=== PATIENT | male | born 1950 | race Caucasian/White ===

== ENCOUNTER 2017-10-02 02:33 | Emergency (ER) | payer MEDICARE, BC, OTHER ==
[~2017-10-02] VITALS: Ht 175.3 cm; Wt 106.8 kg
[~2017-10-02 02:33] MED LIST: ASPI81TA85 PO; ATOR1TAB21 PO; CARV6.25 PO; CHLO25TA PO; CINN500C9 PO; CLOP75TA2 PO; FENO160T10 PO; METF500T13 PO; MULTCAP12 PO; PANT40TA2 PO; SPIR25TA2 PO
[2017-10-02] MEDS ORDERED: FISH600C PO (02:47)
[2017-10-02] MEDS ORDERED: ALLO10TA PO (02:47)
[2017-10-02] MEDS ORDERED: LISI40TAB PO (02:47)
[2017-10-02] MEDS ORDERED: ASPIRIN 81 MG CHEW TABLET As Ordered ONE (03:22)
[2017-10-02 03:24] LABS: BASO # 0.1 10^3/uL (0.0-0.2); BASO % 0.5 % (0.0-1.0); EOS # 0.6 10^3/uL (0.0-0.50); EOS % 4.8 % (0.0-3.0); IMMATURE GRANULOCYTE % 0.9 % (0-0); LYMPH % 26.1 % (24.0-44.0); MEAN CORPUSCULAR HEMOGLOBIN 30.1 pg (27.0-33.0); MEAN CORPUSCULAR VOLUME 86.2 fl (80.0-96.0); MONO # 1.4 10^3/uL (0.0-0.8); MONO % 11.8 % (0.0-5.0); NEUTROPHILS # 6.5 10^3/uL (1.8-7.7); NEUTROPHILS % 55.9 % (36.0-66.0); PLATELET COUNT, AUTOMATED 297 10^3/uL (150-450); RED CELL DISTRIBUTION WIDTH 13.4 % (11.5-14.5); WHITE BLOOD COUNT 11.6 10^3/uL (4.0-10.0)
[2017-10-02 03:28] LABS: INR 0.94
[2017-10-02] MEDS ORDERED: GI COCKTAIL 50ML BTL(HYOSCYAMINE/MAALOX/LIDOCAINE VISCOUS)(1:3:1) PO ONE (03:30)
[2017-10-02] MEDS ORDERED: ASPIRIN 325 MG TAB PO ONE ×2 (03:30→03:45)
[2017-10-02] MEDS ORDERED: MORPHINE 4 MG/ML 1ML SYRINGE IV ONE (03:30)
[2017-10-02 03:41] LABS: ANION GAP 9 MEQ/L (8-16); BLOOD UREA NITROGEN 13 MG/DL (7-18); CALCIUM LEVEL 8.9 MG/DL (8.8-10.2); CARBON DIOXIDE LEVEL 27 MEQ/L (21-32); CHLORIDE LEVEL 95 MEQ/L (98-107); CREATININE FOR GFR 1.19 MG/DL (0.70-1.30); GLOMERULAR FILTRATION RATE > 60.0 (>49); GLUCOSE, FASTING 86 MG/DL (80-110); POTASSIUM SERUM 3.4 MEQ/L (3.5-5.1); SODIUM LEVEL 131 MEQ/L (136-145)
[2017-10-02] MEDS ORDERED: NS 500 ML IV ONE (03:45)
[2017-10-02] MEDS ORDERED: ASPIRIN 81 MG CHEW TABLET PO ONE ×3 (03:45)
[2017-10-02] MEDS ORDERED: ISOVUE-370 76% 100ML VIAL (Q9967) As Ordered ONE (03:50)
--- NOTE | 2017-10-02 06:18 | ECGEPIP ---
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
[2017-10-02] MEDS ORDERED: HEPARIN DRIP 25,000 UNITS in APPROPRIATE DILUENT 1 EA IV SCH (09:58)
[2017-10-02] MEDS ORDERED: HEPARIN SOD (PORCINE) 5000 UNITS/ML VIAL IV ONE (10:00)
[2017-10-02] MEDS ORDERED: CLOPIDOGREL 75 MG TAB PO ONE (10:00)
[2017-10-02] MEDS ORDERED: CARVedilol 12.5 MG TAB PO ONE (10:15)
[2017-10-02 11:22] VITALS: BP 150/86
--- NOTE | 2017-10-02 18:11 | ECGEPIP ---
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
--- NOTE | 2017-10-05 08:25 | REPUSA ---
CLINICAL HISTORY: Dyspnea, exclude PE. TECHNIQUE: Multiple incremental axial, coronal and oblique images are obtained from the thoracic inle t to the upper abdomen. Intravenous contrast material was administered as per pulmonary embolism prot ocol. COMMENTS: Bilateral basilar atelectatic changes. There is excellent opacification of pulmonary arterial system without evidence for pulmonary embolism . Aorta is of normal caliber without evidence for dissection or aneurysm. There is no evidence of pleural or parenchymal mass. There are no pleural effusions. There is no evid ence of hilar or mediastinal lymphadenopathy. The heart and great vessels are within normal limits. Images of the upper abdomen demonstrate no evidence of adrenal mass. The bony structures are free of lytic or blastic lesions. Multilevel degenerative changes are seen involving the visualized thoracolumbar spine. Scattered calcifications are seen involving the aorta and major branches compatible with atherosclero sis. Mild hepatomegaly. Prior cholecystectomy. IMPRESSION: No evidence for pulmonary embolism. Bilateral basilar atelectatic pulmonary changes changes. Pulmonary emphysema. Thank you for your kind referral of this patient.
== END 2017-10-02 11:27 | disposition short-term general hospital (02) ==
LOC: M ED 02:33
DX: I24.9 Acute ischemic heart disease, unspecified (principal); I25.10 Atherosclerotic heart disease of native coronary artery without angina pectoris; E11.9 Type 2 diabetes mellitus without complications; I10 Essential (primary) hypertension; K21.9 Gastro-esophageal reflux disease without esophagitis; K44.9 Diaphragmatic hernia without obstruction or gangrene; Z95.5 Presence of coronary angioplasty implant and graft; Z87.891 Personal history of nicotine dependence; Z79.84 Long term (current) use of oral hypoglycemic drugs; Z79.01 Long term (current) use of anticoagulants; Z79.899 Other long term (current) drug therapy; Z79.82 Long term (current) use of aspirin
CPT/HCPCS: 71275; 80048; 82550; 82553; 84484; 85025; 85610; 85730; 93005; 96374; 96375; 96376; 99285; Q9967

== ENCOUNTER 2017-11-13 08:15 | Outpatient (RCR) | payer MEDICARE, BC, OTHER | END 2017-12-09 | LOC: M CR 08:15 | DX: Z95.5 Presence of coronary angioplasty implant and graft (principal); I25.10 Atherosclerotic heart disease of native coronary artery without angina pectoris | CPT/HCPCS: 93798 ==

== ENCOUNTER 2017-12-10 09:09 | Outpatient (RCR) | payer MEDICARE, BC, OTHER ==
[2018-01-04 09:31] LABS: BEDSIDE GLUCOSE 110 MG/DL (80-115)
== END 2018-01-06 ==
LOC: M CR 09:09
DX: Z95.5 Presence of coronary angioplasty implant and graft (principal); I25.10 Atherosclerotic heart disease of native coronary artery without angina pectoris
CPT/HCPCS: 93798

== ENCOUNTER 2018-01-08 13:16 | Outpatient (RCR) | payer MEDICARE, BC, OTHER | END 2018-02-06 | LOC: M CR 13:16 | DX: Z51.89 Encounter for other specified aftercare (principal); Z95.5 Presence of coronary angioplasty implant and graft; I25.10 Atherosclerotic heart disease of native coronary artery without angina pectoris | CPT/HCPCS: 93798 ==

== ENCOUNTER → 2018-06-11 | Outpatient (CLI) | payer MEDICARE, BC ==
[2018-06-11 09:49] LABS: HEMATOCRIT 40.5 % (42.0-52.0); MEAN CORPUSCULAR HEMOGLOBIN 29.7 pg (27.0-33.0); MEAN CORPUSCULAR HGB CONC 34.6 g/dl (32.0-36.5); MEAN CORPUSCULAR VOLUME 85.8 fl (80.0-96.0); PLATELET COUNT, AUTOMATED 268 10^3/uL (150-450); RED BLOOD COUNT 4.72 10^6/uL (4.30-6.10); RED CELL DISTRIBUTION WIDTH 14.5 % (11.5-14.5); WHITE BLOOD COUNT 8.8 10^3/uL (4.0-10.0)
[2018-06-11 10:05] LABS: INR 0.95; PROTHROMBIN TIME 12.8 SECONDS (12.1-14.4)
[2018-06-11 10:15] LABS: ESTIMATED AVERAGE GLUCOSE 114 MG/DL (60-110); HEMOGLOBIN A1c 5.6 %
[2018-06-11 10:29] LABS: ALBUMIN 3.8 GM/DL (3.2-5.2); ALBUMIN/GLOBULIN RATIO 1.06 (1.00-1.93); ALKALINE PHOSPHATASE 35 U/L (45-117); ALT/SGPT 27 U/L (12-78); ANION GAP 10 MEQ/L (8-16); AST/SGOT 18 U/L (7-37); BILIRUBIN,TOTAL 0.6 MG/DL (0.2-1.0); BLOOD UREA NITROGEN 11 MG/DL (7-18); CARBON DIOXIDE LEVEL 26 MEQ/L (21-32); CHLORIDE LEVEL 98 MEQ/L (98-107); CHOLESTEROL LEVEL 133 MG/DL (<200); CREATININE FOR GFR 1.23 MG/DL (0.70-1.30); GLOMERULAR FILTRATION RATE > 60.0 (>49); GLUCOSE, FASTING 92 MG/DL (70-100); HDL CHOLESTEROL 48 MG/DL (>40); LDL CHOLESTEROL 52.2 MG/DL (<100); NON-HDL-C 85 MG/DL; POTASSIUM SERUM 4.5 MEQ/L (3.5-5.1); PROSTATIC SPECIFIC AG MONITOR 0.49 NG/ML (< 4.0); SODIUM LEVEL 134 MEQ/L (136-145); TOTAL PROTEIN 7.4 GM/DL (6.4-8.2); TRIGLYCERIDES LEVEL 164 MG/DL (<150)
== END ==
LOC: M LAB 08:46
DX: I10 Essential (primary) hypertension (principal); E11.9 Type 2 diabetes mellitus without complications
CPT/HCPCS: 71046

== ENCOUNTER → 2018-07-23 | Outpatient (REF) | payer MEDICARE, BC, OTHER | LOC: M LAB REF 15:35 | DX: L30.8 Other specified dermatitis (principal) | CPT/HCPCS: 88305 ==

== ENCOUNTER → 2018-08-13 | Outpatient (REF) | payer MEDICARE, OTHER ==
[2018-08-13 14:25] LABS: ALBUMIN/GLOBULIN RATIO 1.43 (1.00-1.93); ALKALINE PHOSPHATASE 36 U/L (45-117); ALT/SGPT 35 U/L (12-78); AST/SGOT 25 U/L (7-37); BILIRUBIN,DIRECT 0.3 MG/DL (0.0-0.2); BILIRUBIN,TOTAL 0.7 MG/DL (0.2-1.0); TOTAL PROTEIN 6.8 GM/DL (6.4-8.2)
[2018-08-13 15:34] LABS: HIV 1&2 SCREEN CENTAUR NEGATIVE (NEGATIVE)
[2018-08-16 10:30] LABS: HEPATITIS B SURFACE ANTIGEN NEGATIVE (NEGATIVE)
[2018-08-16 10:57] LABS: HEPATITIS C VIRUS ABY INDEX 0.1 INDEX (<0.8)
[2018-08-16 10:57] LABS: HEPATITIS B CORE ANTIBODY IGM NEGATIVE (NEGATIVE)
[2018-08-16 11:00] LABS: HEPATITIS A ANTIBODY IGM NEGATIVE (NEGATIVE)
== END ==
LOC: M LABDRWAD 12:34
DX: L40.9 Psoriasis, unspecified (principal)
CPT/HCPCS: 87340

== ENCOUNTER → 2018-12-01 | Outpatient (REF) | payer MEDICARE, OTHER ==
[~2018-12-01] MED LIST changes: +ALLO10TA PO; +BENZ200C70 PO; +CARV12.5 PO; +FISH600C PO; +LISI40TA PO; +MAGN500C PO; -PANT40TA2 PO; +PANT40TA3 PO; +SPIR-10 PO; -SPIR25TA2 PO
== END ==
LOC: M SFHCPLAZ 13:42
PROVIDERS: ATTEND Dermatology
DX: L40.9 Psoriasis, unspecified (principal); Z51.81 Encounter for therapeutic drug level monitoring; Z79.899 Other long term (current) drug therapy

== ENCOUNTER → 2019-01-24 | Day surgery (SDC) | payer MEDICARE, BC, OTHER ==
[~2019-01-24] VITALS: Ht 175.3 cm; Wt 106.1 kg
[~2019-01-24] MED LIST changes: +CHLO125TA PO; +NS 1,000 ML IV ONE
--- NOTE | 2019-01-24 12:43 | ROOR ---
Patient Name: Fredo Calzada Procedure Date: 01/24/2019 12:27 PM Date of : 1950 Age: 68 Room: [facility] Gender: Male Note Status: Finalized Procedure: Upper Endoscopy + Biopsies Indications: Follow-up of Longoria's esophagus Providers: Remy Mackey MD Referring MD: KATERINA FUENTES MD Requesting Provider: Medicines: Monitored Anesthesia Care Complications: No immediate complications. Procedure: Pre-Anesthesia Assessment: - The heart rate, respiratory rate, oxygen saturations, blood pressure, adequacy of pulmonary ventilation, and response to care were monitored throughout the procedure. The Endoscope was introduced through the mouth, and advanced to the second part of duodenum. The upper GI endoscopy was accomplished without difficulty. The patient tolerated the procedure well. Findings: The Z-line was variable and was found 40 cm from the incisors. Multiple biopsies were obtained with cold forceps for evaluation to rule out Longoria's Esophagus randomly at the gastroesophageal junction. A small hiatal hernia was present. No other significant abnormalities were identified in a careful examination of the stomach. The exam of the duodenum was otherwise normal. Impression: - Z-line variable, 40 cm from the incisors. - Small hiatal hernia. - Multiple biopsies were obtained at the gastroesophageal junction. - The examination was otherwise normal. Recommendation: - Patient has a contact number available for emergencies. The signs and symptoms of potential delayed complications were discussed with the patient. Return to normal activities tomorrow. Written discharge instructions were provided to the patient. - High fiber diet. - Discharge patient to home. - Continue present medications. - Await pathology results. - Telephone GI clinic for pathology results in 1 week. - Return to referring physician. - Resume Plavix (clopidogrel) at prior dose today. - The findings and recommendations were discussed with the patient's family. Remy Mackey MD Remy Mackey MD 01/24/2019 12:42:48 PM This report has been signed electronically. Number of Addenda: 0 Note Initiated On: 01/24/2019 12:27 PM Estimated Blood Loss: Estimated blood loss: none.
[2019-01-24 13:14] VITALS: BP 159/90
== END | disposition home or self-care (01) ==
LOC: M OPP 10:59
PROVIDERS: ATTEND Internal Medicine Gastroenterology
DX: K22.8 Other specified diseases of esophagus (principal); K44.9 Diaphragmatic hernia without obstruction or gangrene; K22.70 Barrett's esophagus without dysplasia; I25.2 Old myocardial infarction; Z79.82 Long term (current) use of aspirin; Z79.899 Other long term (current) drug therapy; Z88.8 Allergy status to other drugs, medicaments and biological substances; Z95.5 Presence of coronary angioplasty implant and graft; Z87.891 Personal history of nicotine dependence

== ENCOUNTER → 2019-06-01 | Outpatient (REF) | payer MEDICARE, OTHER ==
[~2019-06-01] MED LIST changes: -CHLO25TA PO; -NS 1,000 ML IV ONE
== END ==
LOC: M SFHCPLAZ 18:20
PROVIDERS: ATTEND Dermatology
DX: L82.1 Other seborrheic keratosis (principal); L57.8 Other skin changes due to chronic exposure to nonionizing radiation; D22.61 Melanocytic nevi of right upper limb, including shoulder

== ENCOUNTER 2019-07-07 07:59 | Day surgery (SDC) | payer MEDICARE, BC, OTHER ==
[~2019-07-07] VITALS: Ht 175.3 cm; Wt 102.1 kg
[~2019-07-07 07:59] MED LIST changes: +CINN500C15 PO; +MAGN250T6 PO; +MULT-40 PO
[2019-07-07] MEDS ORDERED: FLUTISP (08:27)
[2019-07-07] MEDS ORDERED: CIPRODEX OTIC SUSP 7.5ML As Ordered ONE (08:50)
[2019-07-07] MEDS ORDERED: fentaNYL 100 MCG/2 ML INJECTION (J3010) As Ordered ONE (08:57)
[2019-07-07] MEDS ORDERED: MIDAZOLAM INJ 2 MG/2 ML VIAL (J2250) As Ordered ONE (08:57)
[2019-07-07] MEDS ORDERED: PROPOFOL 200 MG/20 ML VIAL As Ordered ONE (08:58)
[2019-07-07] MEDS ORDERED: ONDANSETRON 4MG/2ML VIAL (J2405) As Ordered ONE (09:05)
[2019-07-07] MEDS ORDERED: dexameTHASONE 4 MG/ML 1ML VIAL (J1100) As Ordered ONE (09:05)
[2019-07-07 10:10] VITALS: BP 134/72
[2019-07-07] MEDS ORDERED: PERCOCET 5MG/325MG TAB PO PRN (10:15)
[2019-07-07] MEDS ORDERED: fentaNYL 100 MCG/2 ML INJECTION (J3010) IV PRN (10:15)
[2019-07-07] MEDS ORDERED: LR 1,000 ML IV SCH ×2 (10:15)
== END 2019-07-07 11:15 | disposition home or self-care (01) ==
LOC: M SDC 07:59
PROVIDERS: ATTEND Otolaryngology
DX: H65.22 Chronic serous otitis media, left ear (principal); I10 Essential (primary) hypertension; I25.2 Old myocardial infarction; I25.10 Atherosclerotic heart disease of native coronary artery without angina pectoris; E78.5 Hyperlipidemia, unspecified; E11.9 Type 2 diabetes mellitus without complications; K21.9 Gastro-esophageal reflux disease without esophagitis; L40.9 Psoriasis, unspecified; Z79.84 Long term (current) use of oral hypoglycemic drugs; Z87.891 Personal history of nicotine dependence; Z79.02 Long term (current) use of antithrombotics/antiplatelets; Z79.899 Other long term (current) drug therapy; Z91.040 Latex allergy status; Z88.8 Allergy status to other drugs, medicaments and biological substances
CPT/HCPCS: 69436; J1100; J2250; J2405; J3010

== ENCOUNTER → 2019-10-28 | Outpatient (CLI) | payer MEDICARE, BC, OTHER ==
[~2019-10-28] MED LIST changes: +FLUTISP
--- NOTE | 2019-10-28 12:07 | REP ---
Two-view chest: 10/28/2019. Indication: Dyspnea. Cough. Comparison: 06/11/2018. Findings: There is no air space consolidation. No pleural effusion or pneumothorax are present. The cardiomediastinal silhouette is unremarkable. Minimal left basilar atelectasis is noted. Impression: No acute cardiopulmonary process. Electronically Signed by Stan Hardy DO 10/28/2019 11:58 A
== END ==
LOC: M ADAMS 10:23
PROVIDERS: ATTEND Family Medicine
DX: J18.9 Pneumonia, unspecified organism (principal)

== ENCOUNTER → 2019-11-08 | Outpatient (RCR) | payer MEDICARE, BC, OTHER | END | disposition home or self-care (01) | LOC: M PT 08:41 | PROVIDERS: ATTEND Dermatology | DX: L40.9 Psoriasis, unspecified (principal) ==

== ENCOUNTER → 2019-12-09 | Outpatient (RCR) | payer MEDICARE, BC, OTHER | LOC: M PT 11-10 08:44 | PROVIDERS: ATTEND Dermatology | DX: L40.9 Psoriasis, unspecified (principal) ==

== ENCOUNTER → 2019-12-23 | Outpatient (CLI) | payer MEDICARE, BC, OTHER ==
--- NOTE | 2019-12-23 11:01 | REP ---
Clinical: Recent trauma with pain and swelling. Technique: Real time cuellar scale and color evaluation using high frequency transducer. Findings: Directed ultrasound examination overlying the right shoulder and area of maximal tenderness/swelling at the region of the bicipital groove was performed. Fluid is identified within the biceps tendon and there is disruption of the normal linear fibers as well as edema surrounding the long head of the biceps brachii. Impression: Findings are most suspicious for at least partial tear to the biceps tendon. Electronically Signed by Diallo Espinosa MD 12/23/2019 10:53 A
== END ==
LOC: M RAD 10:00
PROVIDERS: ATTEND Nurse Practitioner Family
DX: M79.621 Pain in right upper arm (principal)

== ENCOUNTER 2020-01-06 08:00 | Outpatient (RCR) | payer MEDICARE, BC, OTHER | END 2020-01-07 | LOC: M PT 08:00 | PROVIDERS: ATTEND Dermatology | DX: L40.9 Psoriasis, unspecified (principal) ==

== ENCOUNTER 2020-02-06 07:19 | Outpatient (RCR) | payer MEDICARE, BC, OTHER | END 2020-02-07 | LOC: M PT 07:19 | PROVIDERS: ATTEND Dermatology | DX: Z51.89 Encounter for other specified aftercare (principal); L40.9 Psoriasis, unspecified ==

== ENCOUNTER 2020-03-07 08:00 | Outpatient (RCR) | payer MEDICARE, BC, OTHER | END 2020-03-08 | LOC: M PT 08:00 | PROVIDERS: ATTEND Dermatology | DX: L40.9 Psoriasis, unspecified (principal) ==

== ENCOUNTER 2020-04-06 07:46 | Outpatient (RCR) | payer MEDICARE, BC, OTHER | END 2020-04-08 | LOC: M PT 07:46 | PROVIDERS: ATTEND Dermatology | DX: L40.9 Psoriasis, unspecified (principal) ==

== ENCOUNTER → 2020-04-08 | Outpatient (CLI) | payer MEDICARE, BC, OTHER | LOC: M LABSMTC 11:02 | PROVIDERS: ATTEND Anesthesiology | DX: Z01.818 Encounter for other preprocedural examination (principal); Z11.59 Encounter for screening for other viral diseases | CPT/HCPCS: C9803; U0003 ==

== ENCOUNTER 2020-04-11 07:06 | Day surgery (SDC) | payer MEDICARE, BC, OTHER ==
[~2020-04-11] VITALS: Ht 175.3 cm; Wt 102.1 kg
[2020-04-11] MEDS ORDERED: CIPRODEX OTIC SUSP 7.5ML As Ordered ONE (07:12)
[2020-04-11] MEDS ORDERED: MIDAZOLAM INJ 2MG/2ML VIAL (J2250 PER 1MG) As Ordered ONE (07:13)
[2020-04-11] MEDS ORDERED: fentaNYL 100 MCG/2 ML INJECTION (J3010) As Ordered ONE (07:13)
[2020-04-11] MEDS ORDERED: dexameTHASONE 4 MG/ML 1ML VIAL (J1100 PER 1MG) As Ordered ONE (07:57)
[2020-04-11] MEDS ORDERED: propofoL 200 MG/20 ML VIAL As Ordered ONE (07:57)
[2020-04-11] MEDS ORDERED: LIDOCAINE 2% 100MG/5ML SDV (FOR ANES.) As Ordered ONE (07:57)
[2020-04-11] MEDS ORDERED: ONDANSETRON 4MG/2ML VIAL As Ordered ONE (07:57)
[2020-04-11] MEDS ORDERED: fentaNYL 100 MCG/2 ML INJECTION (J3010) IV PRN (08:45)
[2020-04-11] MEDS ORDERED: LR 1,000 ML IV SCH (08:45)
[2020-04-11] MEDS ORDERED: oxyCODONE 5MG TAB PO PRN (08:45)
[2020-04-11] MEDS ORDERED: ONDANSETRON 4MG/2ML VIAL IV PRN (08:45)
[2020-04-11] MEDS ORDERED: LR 1,000 ML IV ONE (08:45)
[2020-04-11 09:18] VITALS: BP 146/70
--- NOTE | 2020-04-17 10:53 | RO ---
DATE OF PROCEDURE: 04/11/2020 PREPROCEDURE DIAGNOSIS: Chronic serous otitis media of the left ear. POSTPROCEDURE DIAGNOSIS: Chronic serous otitis medial of the left ear. PROCEDURE: Left tympanostomy. SURGEON: Dr. Aldair Stern. CANCER RESEARCHER: ANESTHESIA: General. CLINICAL PREAMBLE: This 69-year-old man has had left tympanostomy done previously for left serous otitis media. He was doing well until the tube was extruded. Management options including replacement of the left tympanostomy tube have been discussed. The patient understood and consented to the procedure. INTRAOPERATIVE FINDINGS: Severe left cerumen impaction and serous effusion in the left middle ear. DESCRIPTION OF PROCEDURE: The patient was identified in the preoperative holding area and brought operating room in stable condition. He had the left ear marked in the preop holding area as well. He was placed in the supine position on the operating table, followed by administration of general anesthesia by the anesthesiology team. Patient was prepped and draped in the usual fashion for the procedure. The patient's head was turned to the right side to expose the left ear. An ear speculum was inserted and cerumen was debrided. The left tympanic membrane was visualized and found to be intact and somewhat retracted. A middle ear effusion was also noted. Myringotomy incision was made over the anterior mucosa of the tympanic. Serous fluid was encountered and suctioned clear from the left middle ear cleft. A 7 mm straight shank tympanostomy tube was inserted. Ciprodex drops were instilled and a cotton ball inserted in the ear canal. At the end of the procedure, sponge and instrument counts are correct. No complications were encountered. Estimated blood loss was less than 1 mL. General anesthesia was reversed and patient was awakened and taken to the recovery room in stable condition.
== END 2020-04-11 09:40 | disposition home or self-care (01) ==
LOC: M SDC 07:06
PROVIDERS: ATTEND Otolaryngology
DX: H65.22 Chronic serous otitis media, left ear (principal); I10 Essential (primary) hypertension; E11.9 Type 2 diabetes mellitus without complications; I25.2 Old myocardial infarction; Z98.61 Coronary angioplasty status; K21.9 Gastro-esophageal reflux disease without esophagitis; M10.9 Gout, unspecified; Z88.8 Allergy status to other drugs, medicaments and biological substances; Z91.040 Latex allergy status; Z79.82 Long term (current) use of aspirin; Z79.84 Long term (current) use of oral hypoglycemic drugs; Z79.899 Other long term (current) drug therapy; F41.9 Anxiety disorder, unspecified
CPT/HCPCS: 69436; J1100; J2250; J2405; J3010

== ENCOUNTER → 2020-05-18 | Outpatient (CLI) | payer MEDICARE, BC, OTHER ==
[~2020-05-18] MED LIST changes: -ASPI81TA85 PO; +ASPI81TA86 PO; +D31000TA2 PO; +ECOT81TA5 PO; +NITR0.4S14; +PANT40TA29 PO; -PANT40TA3 PO
== END ==
LOC: M LAB 07:06
PROVIDERS: ATTEND Family Medicine
DX: I10 Essential (primary) hypertension (principal); R53.83 Other fatigue; E11.9 Type 2 diabetes mellitus without complications; E29.1 Testicular hypofunction; E03.9 Hypothyroidism, unspecified

== ENCOUNTER → 2020-05-18 | Outpatient (CLI) | payer MEDICARE, BC, OTHER ==
[2020-05-18 08:02] LABS: HEMATOCRIT 36.3 % (42.0-52.0); HEMOGLOBIN 12.1 g/dl (13.5-17.5); MEAN CORPUSCULAR HEMOGLOBIN 29.4 pg (27.0-33.0); MEAN CORPUSCULAR HGB CONC 33.3 g/dl (32.0-36.5); MEAN CORPUSCULAR VOLUME 88.1 fl (80.0-96.0); PLATELET COUNT, AUTOMATED 238 10^3/uL (150-450); RED BLOOD COUNT 4.12 10^6/uL (4.30-6.10)
[2020-05-18 08:40] LABS: ALBUMIN 3.5 GM/DL (3.2-5.2); ALT/SGPT 25 U/L (12-78); BILIRUBIN,TOTAL 0.7 MG/DL (0.2-1.0); BLOOD UREA NITROGEN 12 MG/DL (7-18); CALCIUM LEVEL 8.6 MG/DL (8.8-10.2); CARBON DIOXIDE LEVEL 27 MEQ/L (21-32); CHLORIDE LEVEL 99 MEQ/L (98-107); CHOLESTEROL LEVEL 125 MG/DL (<200); CHOLESTEROL RISK RATIO 2.659 (<5); CREATININE FOR GFR 1.13 MG/DL (0.70-1.30); GLOMERULAR FILTRATION RATE > 60.0 (>42); GLUCOSE, FASTING 85 MG/DL (70-100); HDL CHOLESTEROL 47 MG/DL (>40); LDL CHOLESTEROL 62 MG/DL (<100); NON-HDL-C 78 MG/DL; PROSTATIC SPECIFIC AG MONITOR 0.43 NG/ML (< 4.00); SODIUM LEVEL 135 MEQ/L (136-145); TOTAL PROTEIN 6.9 GM/DL (6.4-8.2); TRIGLYCERIDES LEVEL 80 MG/DL (<150)
[2020-05-18 08:42] LABS: TESTOSTERONE 680 NG/DL (241-827); TOTAL 25(OH) VITAMIN D 27.6 NG/ML (30.0-100.0)
[2020-05-18 11:06] LABS: HEMOGLOBIN A1c 6.6 %
== END ==
LOC: M LAB 07:11
PROVIDERS: ATTEND Dermatology
DX: Z79.899 Other long term (current) drug therapy (principal)

== ENCOUNTER 2020-06-16 22:05 | Emergency (ER) | payer MEDICARE, BC, OTHER ==
[~2020-06-16 22:05] MED LIST changes: -D31000TA2 PO; -ECOT81TA5 PO; -NITR0.4S14
[2020-06-17] MEDS ORDERED: LIDOCAINE 4% CREAM 5GM (LMX4) As Ordered ONE (00:11)
[2020-06-17] MEDS ORDERED: lisinopriL 40 MG TAB As Ordered ONE (00:44)
[2020-06-17] MEDS ORDERED: CARVedilol 3.125 MG TAB As Ordered ONE (00:46)
[2020-08-02 08:28] LABS: D-DIMER QUANT 658.19 ng/ml (<500); INR 1.03; PARTIAL THROMBOPLASTIN TIME 26.1 SECONDS (24.2-38.5); PROTHROMBIN TIME 13.7 SECONDS (12.5-14.3)
[2020-08-02 18:37] LABS: BASO # 0.1 10^3/uL (0.0-0.2); BASO % 0.5 % (0.0-1.0); EOS # 0.3 10^3/uL (0.0-0.5); EOS % 3.1 % (0.0-3.0); HEMATOCRIT 35.2 % (42.0-52.0); HEMOGLOBIN 12.1 g/dl (13.5-17.5); LYMPH # 2.8 10^3/uL (1.5-5.0); LYMPH % 26.7 % (24.0-44.0); MEAN CORPUSCULAR HGB CONC 34.4 g/dl (32.0-36.5); MEAN CORPUSCULAR VOLUME 87.1 fl (80.0-96.0); MONO # 1.3 10^3/uL (0.0-0.8); MONO % 12.2 % (0.0-5.0); NEUTROPHILS % 56.6 % (36.0-66.0); PLATELET COUNT, AUTOMATED 315 10^3/uL (150-450); RED BLOOD COUNT 4.04 10^6/uL (4.30-6.10); WHITE BLOOD COUNT 10.5 10^3/uL (4.0-10.0)
[2020-09-02 02:36] LABS: BLOOD UREA NITROGEN 16 MG/DL (7-18); CALCIUM LEVEL 8.8 MG/DL (8.8-10.2); CARBON DIOXIDE LEVEL 26 MEQ/L (21-32); CHLORIDE LEVEL 98 MEQ/L (98-107); CREATININE FOR GFR 1.25 MG/DL (0.70-1.30); GLOMERULAR FILTRATION RATE > 60.0 (>42); GLUCOSE, FASTING 106 MG/DL (70-100); NT-PRO BNP 297 PG/ML (<125); POTASSIUM SERUM 3.6 MEQ/L (3.5-5.1); SODIUM LEVEL 132 MEQ/L (136-145); URIC ACID 4.5 MG/DL (3.5-7.2)
[2020-09-12] MEDS ORDERED: ECOT81TA5 PO (12:10)
[2020-09-12] MEDS ORDERED: D31000TA2 PO (12:18)
[2020-09-12] MEDS ORDERED: NITR0.4S14 (12:19)
== END 2020-06-17 01:20 | disposition home or self-care (01) ==
LOC: M ED 22:05
DX: R22.41 Localized swelling, mass and lump, right lower limb (principal); E11.9 Type 2 diabetes mellitus without complications; I10 Essential (primary) hypertension; E78.5 Hyperlipidemia, unspecified; K21.9 Gastro-esophageal reflux disease without esophagitis; M10.9 Gout, unspecified; Z79.84 Long term (current) use of oral hypoglycemic drugs; Z79.899 Other long term (current) drug therapy

== ENCOUNTER → 2020-09-12 | Outpatient (CLI) | payer MEDICARE, BC, OTHER ==
[~2020-09-12] MED LIST changes: +D31000TA2 PO; +ECOT81TA5 PO; +NITR0.4S14
== END ==
LOC: M LABSMTC 12:11
PROVIDERS: ATTEND Anesthesiology
DX: Z01.818 Encounter for other preprocedural examination (principal)
CPT/HCPCS: C9803; U0003

== ENCOUNTER 2020-09-17 06:40 | Day surgery (SDC) | payer MEDICARE, BC, OTHER ==
[~2020-09-17] VITALS: Ht 175.3 cm; Wt 100.2 kg
[~2020-09-17 06:40] MED LIST changes: +NS 1,000 ML IV ONE
[2020-09-17] MEDS ORDERED: LIDOCAINE 2% 100MG/5ML SDV (FOR ANES.) As Ordered ONE (07:03)
[2020-09-17] MEDS ORDERED: propofoL 200 MG/20 ML VIAL As Ordered ONE (07:03)
--- NOTE | 2020-09-17 07:45 | ROOR ---
Patient Name: Fredo Calzada Procedure Date: 09/17/2020 7:32 AM Date of : 1950 Age: 70 Room: [facility] Gender: Male Note Status: Finalized Procedure: Upper Endoscopy + Biopsies Indications: Heartburn, Exclusion of Longoria's esophagus Providers: Remy Mackey MD Referring MD: NANCI FUENTES MD, Albaro Montejo MD Requesting Provider: Medicines: Monitored Anesthesia Care Complications: No immediate complications. Procedure: Pre-Anesthesia Assessment: - The heart rate, respiratory rate, oxygen saturations, blood pressure, adequacy of pulmonary ventilation, and response to care were monitored throughout the procedure. The Endoscope was introduced through the mouth, and advanced to the second part of duodenum. The upper GI endoscopy was accomplished without difficulty. The patient tolerated the procedure well. Findings: The Z-line was variable and was found 39 cm from the incisors. Multiple biopsies were obtained with cold forceps for evaluation to rule out Longoria's Esophagus randomly at the gastroesophageal junction. A small hiatal hernia was present. No other significant abnormalities were identified in a careful examination of the stomach. The exam of the duodenum was otherwise normal. Impression: - Z-line variable, 39 cm from the incisors. - Small hiatal hernia. - Multiple biopsies were obtained at the gastroesophageal junction. - The examination was otherwise normal. Recommendation: - Patient has a contact number available for emergencies. The signs and symptoms of potential delayed complications were discussed with the patient. Return to normal activities tomorrow. Written discharge instructions were provided to the patient. - High fiber diet. - Discharge patient to home. - Follow an antireflux regimen. - Continue present medications. - Await pathology results. - Telephone GI clinic for pathology results in 1 week. - Return to referring physician. - The findings and recommendations were discussed with the patient. Remy Mackey MD Remy Mackey MD 09/17/2020 7:45:25 AM Electronically signed by Remy Mackey MD Number of Addenda: 0 Note Initiated On: 09/17/2020 7:32 AM Estimated Blood Loss: Estimated blood loss: none.
--- NOTE | 2020-09-17 08:11 | ROOR ---
Patient Name: Fredo Calzada Procedure Date: 09/17/2020 7:34 AM Date of : 1950 Age: 70 Room: [facility] Gender: Male Note Status: Finalized Procedure: Total Colonoscopy to Cecum + Cold Snare Polypectomy + Hemoclips Indications: Screening for colorectal malignant neoplasm Providers: Remy Mackey MD Referring MD: NANCI FUENTES MD, Albaro Montejo MD Requesting Provider: Medicines: Monitored Anesthesia Care Complications: No immediate complications. Procedure: Pre-Anesthesia Assessment: - The heart rate, respiratory rate, oxygen saturations, blood pressure, adequacy of pulmonary ventilation, and response to care were monitored throughout the procedure. The Colonoscope was introduced through the anus and advanced to the cecum, identified by appendiceal orifice and ileocecal valve. The colonoscopy was performed without difficulty. The patient tolerated the procedure well. The quality of the bowel preparation was excellent. Findings: The perianal and digital rectal examinations were normal. Non-bleeding internal hemorrhoids were found during retroflexion. The hemorrhoids were small and Grade I (internal hemorrhoids that do not prolapse). A medium polyp was found at 40 cm proximal to the anus. The polyp was sessile. The polyp was removed with a cold snare. Resection and retrieval were complete. To prevent bleeding after the polypectomy, one hemostatic clip was successfully placed (MR conditional). There was no bleeding at the end of the procedure. Two sessile polyps were found at 20 cm proximal to the anus. The polyps were small in size. These polyps were removed with a cold snare. Resection and retrieval were complete. To prevent bleeding after the polypectomy, two hemostatic clips were successfully placed (MR conditional). Scattered small-mouthed diverticula were found in the recto-sigmoid colon, sigmoid colon and descending colon. The exam was otherwise without abnormality on direct and retroflexion views. Impression: - Non-bleeding internal hemorrhoids. - One medium polyp at 40 cm proximal to the anus, removed with a cold snare. Resected and retrieved. Clip (MR conditional) was placed. - Two small polyps at 20 cm proximal to the anus, removed with a cold snare. Resected and retrieved. Clips (MR conditional) were placed. - Diverticulosis in the recto-sigmoid colon, in the sigmoid colon and in the descending colon. - The examination was otherwise normal on direct and retroflexion views. - The exam was otherwise normal to the cecum. Recommendation: - Patient has a contact number available for emergencies. The signs and symptoms of potential delayed complications were discussed with the patient. Return to normal activities tomorrow. Written discharge instructions were provided to the patient. - High fiber diet. - Discharge patient to home. - Continue present medications. - Await pathology results. - Telephone GI clinic for pathology results in 1 week. - Repeat colonoscopy in 5 years for surveillance. - Return to referring physician. - Resume Plavix (clopidogrel) at prior dose today. - The findings and recommendations were discussed with the patient. Remy Mackey MD Remy Mackey MD 09/17/2020 8:11:16 AM Electronically signed by Remy Mackey MD Number of Addenda: 0 Note Initiated On: 09/17/2020 7:34 AM Estimated Blood Loss: Estimated blood loss: none.
[2020-09-17 08:25] VITALS: BP 116/63
== END 2020-09-17 08:40 | disposition home or self-care (01) ==
LOC: M OPP 06:40
PROVIDERS: ATTEND Internal Medicine Gastroenterology
DX: Z12.11 Encounter for screening for malignant neoplasm of colon (principal); K63.5 Polyp of colon; K57.30 Diverticulosis of large intestine without perforation or abscess without bleeding; K64.0 First degree hemorrhoids; K22.8 Other specified diseases of esophagus; K44.9 Diaphragmatic hernia without obstruction or gangrene; R12 Heartburn; Z79.82 Long term (current) use of aspirin; Z79.84 Long term (current) use of oral hypoglycemic drugs; Z79.899 Other long term (current) drug therapy

== ENCOUNTER → 2021-01-05 | Outpatient (CLI) | payer MEDICARE, BC, OTHER ==
[~2021-01-05] MED LIST changes: +ATOR80TA59 PO; +CHLO25TA PO; -LISI40TA PO; +LISI40TA4 PO; -NS 1,000 ML IV ONE; +VITA100054 PO; +ZYLO300T6 PO
== END ==
LOC: M LABSMTC 09:08
PROVIDERS: ATTEND Anesthesiology
DX: Z01.812 Encounter for preprocedural laboratory examination (principal); Z20.822 Contact with and (suspected) exposure to COVID-19

== ENCOUNTER 2021-01-10 07:33 | Day surgery (SDC) | payer MEDICARE, BC, OTHER ==
[~2021-01-10] VITALS: Ht 175.3 cm; Wt 103.4 kg
[~2021-01-10 07:33] MED LIST changes: +LIDOCAINE 1% MDV 20ML VIAL SQ PRN; +LR 1,000 ML IV ONE
[2021-01-10] MEDS ORDERED: PHENYLEPHRINE 0.5% NASAL SPRAY 15 ML As Ordered ONE (09:47)
[2021-01-10] MEDS ORDERED: CIPRODEX OTIC SUSP 7.5ML As Ordered ONE (09:47)
[2021-01-10] MEDS ORDERED: ONDANSETRON 4MG/2ML VIAL As Ordered ONE (10:07)
[2021-01-10] MEDS ORDERED: propofoL 200 MG/20 ML VIAL As Ordered ONE ×3 (10:07→10:50)
[2021-01-10] MEDS ORDERED: METOCLOPRAMIDE INJ 10MG/2ML VIAL (J2765 PER 1) As Ordered ONE (10:07)
[2021-01-10] MEDS ORDERED: LIDOCAINE 2% 100MG/5ML SDV (FOR ANES.) As Ordered ONE (10:07)
[2021-01-10] MEDS ORDERED: MIDAZOLAM INJ 2MG/2ML VIAL (J2250 PER 1MG) As Ordered ONE (10:07)
[2021-01-10] MEDS ORDERED: fentaNYL 100 MCG/2 ML INJECTION (J3010) As Ordered ONE (10:07)
[2021-01-10] MEDS ORDERED: dexameTHASONE 4 MG/ML 1ML VIAL (J1100 PER 1MG) As Ordered ONE (10:07)
[2021-01-10] MEDS ORDERED: ACETAMINOPHEN 1000MG 100ML IV BTL (OFIRMEV) (J0131 PER 10MG) As Ordered ONE (10:20)
[2021-01-10] MEDS ORDERED: ALBUTEROL 6.7GM INHALER **FOR ANES. CART/OMNICELL ONLY As Ordered ONE (10:20)
[2021-01-10] MEDS ORDERED: PHENYLephrine 500MCG 5ML (100MCG/ML) SYRINGE As Ordered ONE (10:48)
[2021-01-10] MEDS ORDERED: fentaNYL 100 MCG/2 ML INJECTION (J3010) IV PRN (11:20)
[2021-01-10] MEDS ORDERED: LR 1,000 ML IV SCH ×2 (11:20)
[2021-01-10] MEDS ORDERED: METOCLOPRAMIDE INJ 10MG/2ML VIAL (J2765 PER 1) IV PRN (11:20)
[2021-01-10] MEDS ORDERED: ONDANSETRON 4MG/2ML VIAL IV PRN (11:20)
[2021-01-10 12:20] VITALS: BP 161/89
--- NOTE | 2021-01-10 12:43 | RO ---
OPERATIVE NOTE DATE OF OPERATION: 01/10/2021 PREOPERATIVE DIAGNOSES: 1. Eustachian tube dysfunction. 2. Left serous otitis media. 3. Mixed hearing loss. POSTOPERATIVE DIAGNOSES: 1. Eustachian tube dysfunction. 2. Left serous otitis media. 3. Mixed hearing loss. PROCEDURE PERFORMED: Bilateral tympanostomy using the Ortiz Modified T-tube. ANESTHESIA: General. CLINICAL PREAMBLE: This 70-year-old gentleman presented to the office complaining of recurrent ear symptoms including hearing loss and fullness sensation. Physical examination revealed presence of fluid in the left ear and retracted right tympanic membrane. He also was noted to have mixed hearing loss. Management options including replacement of bilateral tympanostomy tube with the T-tube have been discussed. As the patient had good results while the T-tubes were in situ, he agreed to have the replacement of the T-tube performed. INTRAOPERATIVE FINDINGS: Bilateral cerumen impaction. Fluid in the left middle ear, which was suctioned clear. OR NARRATION: Patient was identified in preoperative holding and brought to the operating room in stable condition. In the supine position on the operating table, patient received general anesthesia followed by orotracheal intubation without incident. Patient was prepped and draped in the usual fashion for the procedure. The patient's head was turned to the left side to expose the right ear. Ear speculum was inserted, and cerumen was debrided. The right tympanic membrane was visualized under binocular magnification under an operating microscope and was found to be intact and mildly retracted. Myringotomy incision was made over the anterior-inferior quadrant of tympanic membrane. The right middle ear cleft was then suctioned clear. A Ortiz Modified T-tube was inserted. Ciprodex drops were instilled and a cotton ball was used to occlude the ear canal. The same procedure was carried out to place the same type of tympanostomy tube to the left ear as well. At the end of the end of the procedure, sponge and needle counts were correct. No complications were encountered. Estimated blood loss was nil. General anesthesia was reversed, and patient was awakened and taken to recover room in stable condition.
--- NOTE | 2021-01-11 09:12 | ECGEPIP ---
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
== END 2021-01-10 12:42 | disposition home or self-care (01) ==
LOC: M SDC 07:33
PROVIDERS: ATTEND Otolaryngology
DX: H69.93 Unspecified Eustachian tube disorder, bilateral (principal); H65.02 Acute serous otitis media, left ear; H90.8 Mixed conductive and sensorineural hearing loss, unspecified; K21.9 Gastro-esophageal reflux disease without esophagitis; L40.8 Other psoriasis; I10 Essential (primary) hypertension; E78.5 Hyperlipidemia, unspecified; Z98.61 Coronary angioplasty status; I25.10 Atherosclerotic heart disease of native coronary artery without angina pectoris; Z87.891 Personal history of nicotine dependence; Z91.040 Latex allergy status; Z88.8 Allergy status to other drugs, medicaments and biological substances; E11.9 Type 2 diabetes mellitus without complications; Z79.899 Other long term (current) drug therapy
CPT/HCPCS: 69436; 93005; J0131; J1100; J2250; J2370; J2405; J2765; J3010

== ENCOUNTER 2021-09-12 23:32 | Emergency (ER) | payer MEDICARE, BC, OTHER ==
[~2021-09-12] VITALS: Ht 175.3 cm; Wt 102.3 kg
[~2021-09-12 23:32] MED LIST changes: -LIDOCAINE 1% MDV 20ML VIAL SQ PRN; -LR 1,000 ML IV ONE
[2021-09-13 02:57] VITALS: BP 142/82
== END 2021-09-13 05:46 | disposition left against medical advice (07) ==
LOC: M ED 23:32
DX: Z53.21 Procedure and treatment not carried out due to patient leaving prior to being seen by health care provider (principal)

== ENCOUNTER → 2021-09-27 | Outpatient (CLI) | payer MEDICARE, BC, OTHER ==
--- NOTE | 2021-09-27 13:31 | REP ---
INDICATION: LLQ MASS COMPARISON: 12/20/2008 TECHNIQUE: Axial noncontrast images from the lung bases to the pubic symphysis with coronal and sagittal reformations. This CT examination was performed using the following dose reduction techniques: Automated exposure control, adjustment of mA and/or kv according to the patient's size, and use of iterative reconstruction technique. FINDINGS: Lung bases demonstrate chronic emphysematous changes. Liver, spleen, pancreas, bilateral adrenal glands and kidneys are essentially normal. Incidental 2 mm nonobstructing right nephrolith noted. The enteric system is unremarkable and without obstruction or acute inflammatory process. Normal terminal ileum and appendix identified in the right lower quadrant. Pelvis demonstrates normal bladder and age-appropriate prostate/seminal vesicles. Small fat containing right inguinal hernia noted. No ascites. No free air. No adenopathy. No focal inflammatory stranding. Atherosclerotic changes to the aorta and vasculature noted without aneurysm. Musculoskeletal structures demonstrate age-related degenerative changes without acute osseous abnormality. IMPRESSION: No acute abdominopelvic pathology appreciated. 2 mm nonobstructing right nephrolith. Small fat containing right inguinal hernia. <Electronically signed by Diallo Espinosa > 09/27/21 [id number]
== END ==
LOC: M RAD 12:55
PROVIDERS: ATTEND Family Medicine
DX: K40.90 Unilateral inguinal hernia, without obstruction or gangrene, not specified as recurrent (principal)

== ENCOUNTER → 2022-04-02 | Outpatient (CLI) | payer MEDICARE, BC, OTHER ==
[~2022-04-02] MED LIST changes: -D31000TA2 PO; +VITA100093 PO
== END ==
LOC: M WUC 09:19
PROVIDERS: ATTEND Family Medicine
DX: J44.9 Chronic obstructive pulmonary disease, unspecified (principal); J18.9 Pneumonia, unspecified organism

== ENCOUNTER → 2022-05-30 | Outpatient (REF) | payer MEDICARE, BC, OTHER | LOC: M LAB REF 20:51 | PROVIDERS: ATTEND Physician Assistant Medical | DX: H66.91 Otitis media, unspecified, right ear (principal) ==

== ENCOUNTER → 2022-11-14 | Outpatient (CLI) | payer MEDICARE, BC, OTHER | LOC: M RAD 08:35 | PROVIDERS: ATTEND Family Medicine | DX: J18.9 Pneumonia, unspecified organism (principal) ==

== ENCOUNTER 2023-05-14 09:46 | Emergency (ER) | payer MEDICARE, BC, OTHER ==
[~2023-05-14] VITALS: Ht 175.3 cm; Wt 90.7 kg
[~2023-05-14 09:46] MED LIST changes: +FLUT50SP17; -FLUTISP
[2023-05-14 14:21] LABS: BASO % 0.5 % (0.0-1.0); EOS # 0.5 10^3/uL (0.0-0.5); HEMATOCRIT 34.7 % (42.0-52.0); HEMOGLOBIN 12.1 g/dl (13.5-17.5); LYMPH # 1.8 10^3/uL (1.5-5.0); LYMPH % 27.3 % (24.0-44.0); MEAN CORPUSCULAR HEMOGLOBIN 30.1 pg (27.0-33.0); MEAN CORPUSCULAR HGB CONC 34.9 g/dl (32.0-36.5); MEAN CORPUSCULAR VOLUME 86.3 fl (80.0-96.0); MONO # 0.8 10^3/uL (0.0-0.8); MONO % 11.6 % (2.0-8.0); NEUTROPHILS # 3.5 10^3/uL (1.5-8.5); NEUTROPHILS % 52.1 % (36.0-66.0); PLATELET COUNT, AUTOMATED 266 10^3/uL (150-450); RED BLOOD COUNT 4.02 10^6/uL (4.30-6.10); WHITE BLOOD COUNT 6.6 10^3/uL (4.0-10.0)
[2023-05-14 14:38] LABS: INR 1.42; PROTHROMBIN TIME 17.6 SECONDS (12.5-14.5)
[2023-05-14 14:46] LABS: ALBUMIN 3.8 G/DL (3.2-5.2); ALKALINE PHOSPHATASE 44 U/L (46-116); ALT/SGPT 22 U/L (7.0-40); AST/SGOT 11 U/L (<34); BILIRUBIN,DIRECT 0.5 MG/DL (<0.4); BILIRUBIN,TOTAL 1.1 MG/DL (0.3-1.2); BLOOD UREA NITROGEN 9 MG/DL (9-23); CALCIUM LEVEL 8.7 MG/DL (8.3-10.6); CARBON DIOXIDE LEVEL 27 MMOL/L (20-31); CHLORIDE LEVEL 94 MMOL/L (98-107); CREATININE FOR GFR 0.98 MG/DL (0.70-1.30); GLOMERULAR FILTRATION RATE > 60.0 (>42); GLUCOSE, FASTING 87 MG/DL (74-106); POTASSIUM SERUM 3.1 MMOL/L (3.5-5.1); SODIUM LEVEL 128 MMOL/L (136-145); TOTAL PROTEIN 6.7 G/DL (5.7-8.2)
[2023-05-14] MEDS ORDERED: ISOVUE-370 76% 100ML VIAL As Ordered ONE (14:50)
[2023-05-14 16:13] VITALS: BP 145/68; TEMP 97.9; O2SAT 98
== END 2023-05-14 16:28 | disposition home or self-care (01) ==
LOC: M ED 09:46
DX: R22.42 Localized swelling, mass and lump, left lower limb (principal); I70.202 Unspecified atherosclerosis of native arteries of extremities, left leg; I11.9 Hypertensive heart disease without heart failure; I48.91 Unspecified atrial fibrillation; I25.2 Old myocardial infarction; E11.9 Type 2 diabetes mellitus without complications; E78.5 Hyperlipidemia, unspecified; K21.9 Gastro-esophageal reflux disease without esophagitis; K22.70 Barrett's esophagus without dysplasia; M10.9 Gout, unspecified; Z79.899 Other long term (current) drug therapy; Z88.8 Allergy status to other drugs, medicaments and biological substances; Z91.040 Latex allergy status; Z79.82 Long term (current) use of aspirin
CPT/HCPCS: 36415; 73630; 75635; 80048; 80076; 85025; 85610; 85730; 93971; 99284; Q9967

== ENCOUNTER → 2023-10-06 | Outpatient (REF) | payer MEDICARE, BC, OTHER | LOC: M LAB REF 14:42 | PROVIDERS: ATTEND Physician Assistant Medical | DX: H60.8X1 Other otitis externa, right ear (principal) ==

== ENCOUNTER → 2023-10-09 | Outpatient (REF) | payer MEDICARE, OTHER | LOC: M LAB REF 16:44 | PROVIDERS: ATTEND Physician Assistant Medical | DX: H66.91 Otitis media, unspecified, right ear (principal) ==

== ENCOUNTER → 2024-02-03 | Outpatient (CLI) | payer MEDICARE, OTHER, BC ==
[~2024-02-03] MED LIST changes: -FLUT50SP17; +FLUTISP
== END ==
LOC: M RAD 07:30
PROVIDERS: ATTEND Family Medicine
DX: J44.9 Chronic obstructive pulmonary disease, unspecified (principal); J18.9 Pneumonia, unspecified organism

== ENCOUNTER 2024-03-12 21:32 | Inpatient (IN) | payer MEDICARE, OTHER, BC ==
[~2024-03-12] VITALS: Ht 175.3 cm; Wt 80.6 kg
[~2024-03-12 21:32] MED LIST changes: -NITR0.4S14; +NITR0.4S14 SL
[2024-03-12 22:58] LABS: BASO % 0.2 % (0.0-1.0); EOS # 0.2 10^3/uL (0.0-0.5); EOS % 2.2 % (0.0-3.0); HEMATOCRIT 39.3 % (42.0-52.0); HEMOGLOBIN 14.3 g/dl (13.5-17.5); LYMPH # 1.5 10^3/uL (1.5-5.0); LYMPH % 18.2 % (24.0-44.0); MEAN CORPUSCULAR HEMOGLOBIN 29.2 pg (27.0-33.0); MEAN CORPUSCULAR HGB CONC 36.4 g/dl (32.0-36.5); MEAN CORPUSCULAR VOLUME 80.2 fl (80.0-96.0); MONO % 12.4 % (2.0-8.0); NEUTROPHILS # 5.5 10^3/uL (1.5-8.5); NEUTROPHILS % 66.6 % (36.0-66.0); PLATELET COUNT, AUTOMATED 266 10^3/uL (150-450); WHITE BLOOD COUNT 8.3 10^3/uL (4.0-10.0)
[2024-03-12 23:44] LABS: ALBUMIN 3.1 G/DL (3.2-5.2); ALKALINE PHOSPHATASE 58 U/L (46-116); ALT/SGPT 46 U/L (7.0-40); AST/SGOT 92 U/L (<34); BILIRUBIN,DIRECT 1.3 MG/DL (<0.4); BILIRUBIN,TOTAL 2.1 MG/DL (0.3-1.2); BLOOD UREA NITROGEN 12 MG/DL (9-23); CALCIUM LEVEL 8.4 MG/DL (8.3-10.6); CARBON DIOXIDE LEVEL 31 MMOL/L (20-31); CHLORIDE LEVEL 76 MMOL/L (98-107); CREATININE FOR GFR 1.03 MG/DL (0.70-1.30); GLOMERULAR FILTRATION RATE > 60.0 (>42); GLUCOSE, FASTING 104 MG/DL (74-106); POTASSIUM SERUM 2.4 MMOL/L (3.5-5.1); SODIUM LEVEL 117 MMOL/L (136-145); THYROID STIMULATING HORMONE 6.458 uIU/ML (0.55-4.78); TOTAL PROTEIN 6.8 G/DL (5.7-8.2)
[2024-03-13] MEDS ORDERED: ISOVUE-370 76% 100ML VIAL As Ordered ONE (01:21)
[2024-03-13] MEDS: NS 1,000 ML IV SCH (01:24)
[2024-03-13] MEDS: ONDANSETRON 4MG 2ML VIAL IV ONE (01:24)
[2024-03-13] MEDS: POTASSIUM CHLORIDE 10% LIQ 20MEQ/15ML UDC PO ONE (01:57)
[2024-03-13 02:31] LABS: ETHYL ALCOHOL (ETHANOL) 0.032 % (0.000-0.010)
[2024-03-13 02:36] LABS: FREE T4 1.36 NG/DL (0.89-1.76)
[2024-03-13] MEDS ORDERED: ONDA4TAB6 PO (02:48)
[2024-03-13] MEDS ORDERED: ALLO300T2 PO (02:48)
[2024-03-13] MEDS ORDERED: CLOB0.0548 TOP (02:48)
[2024-03-13] MEDS ORDERED: KETO2SHA8 TOP (02:48)
[2024-03-13] MEDS ORDERED: FURO40TA2 PO (02:48)
[2024-03-13] MEDS ORDERED: AUGM0.0534 TOP (02:48)
[2024-03-13] MEDS ORDERED: VITA500045 PO (02:48)
[2024-03-13] MEDS ORDERED: MAGN400T2 PO (02:48)
[2024-03-13] MEDS ORDERED: HOME MED LIST COMPLETE! XX SCH (02:50)
[2024-03-13] MEDS ORDERED: GLUCAGON INJ 1MG VIAL SC PRN (03:00)
[2024-03-13] MEDS ORDERED: GLUCOSE 4 GM CHEW PO PRN (03:00)
[2024-03-13] MEDS ORDERED: DEXTROSE 50% 50ML SYRINGE IV PRN (03:00)
[2024-03-13] MEDS: FUROSEMIDE 20MG/2ML VIAL IV ONE (03:17)
[2024-03-13] MEDS: KCL 10MEQ/100ML SWI (KRUN) 10 MEQ in IV 1 EA IV SCH (03:18)
[2024-03-13 03:33] LABS: MAGNESIUM LEVEL 1.3 MG/DL (1.8-2.4)
[2024-03-13 04:03] LABS: APPEARANCE, URINE CLEAR (CLEAR); BACTERIA, URINE AUTO NEGATIVE (NEGATIVE); BILIRUBIN, URINE AUTO NEGATIVE (NEGATIVE); BLOOD, URINE BLOOD 1+ (NEGATIVE); COLOR, URINE YELLOW (YELLOW); GLUCOSE, URINE (UA) AUTO NEGATIVE (NEGATIVE); KETONE, URINE AUTO NEGATIVE (NEGATIVE); LEUKOCYTE ESTERASE, URINE AUTO NEGATIVE (NEGATIVE); NITRITE, URINE AUTO NEGATIVE (NEGATIVE); PROTEIN, URINE AUTO 2+ mg/dL (NEGATIVE); RBC, URINE AUTO 2 /HPF (0-3); SQUAMOUS EPITHELIAL CELL UR AU 0 /HPF (0-6); UROBILINOGEN, URINE AUTO 0.2 mg/dL (0.0-2.0); WBC, URINE AUTO 0 /HPF (0-3)
[2024-03-13] MEDS: MAG SULF 1GM/100ML (MAG RUN) 1 GM in IV 1 EA IV SCH (04:03)
[2024-03-13 04:22] LABS: SODIUM,RANDOM URINE 34 MMOL/L
[2024-03-13 04:23] LABS: OSMOLALITY URINE 180 MOSM/KG (50-1400)
[2024-03-13 04:26] VITALS: BP 120/83; TEMP 98; O2SAT 92
[2024-03-13 04:48] LABS: BLOOD UREA NITROGEN 12 MG/DL (9-23); CALCIUM LEVEL 8.4 MG/DL (8.3-10.6); CARBON DIOXIDE LEVEL 36 MMOL/L (20-31); CHLORIDE LEVEL 78 MMOL/L (98-107); CREATININE FOR GFR 1.02 MG/DL (0.70-1.30); GLOMERULAR FILTRATION RATE > 60.0 (>42); GLUCOSE, FASTING 104 MG/DL (74-106); POTASSIUM SERUM 2.3 MMOL/L (3.5-5.1); SODIUM LEVEL 119 MMOL/L (136-145)
[2024-03-13] MEDS: POTASSIUM CHLORIDE 10MEQ SR TABLET PO ONE (05:03)
[2024-03-13 05:51] LABS: OSMOLALITY SERUM 260 MOSM/KG (280-301)
[2024-03-13] MEDS ORDERED: ONDANSETRON 4MG ORAL DISINTEGRATING TAB PO PRN (07:00)
[2024-03-13] MEDS: INSULIN LISPRO (NovoLOG) PER UNIT SC SCH ×2 (07:19→20:05)
[2024-03-13 08:04] VITALS: BP 136/85; TEMP 99.2; O2SAT 96
[2024-03-13] MEDS: ATORVASTATIN 20 MG TAB PO SCH (09:40)
[2024-03-13] MEDS: SODIUM CHLORIDE 1 GM TAB PO SCH (09:40)
[2024-03-13] MEDS: allopurinoL 300 MG TAB PO SCH (09:40)
[2024-03-13] MEDS: ASPIRIN 81MG ENTERIC TABLET PO SCH (09:40)
[2024-03-13] MEDS: MAGNESIUM OXIDE 400MG TAB (MAG-OX) PO SCH (09:40)
[2024-03-13] MEDS: PANTOPRAZOLE 40MG TAB (PROTONIX) PO SCH (09:41)
[2024-03-13] MEDS: FUROSEMIDE 40 MG TAB PO SCH (09:41)
[2024-03-13 10:33] LABS: BLOOD UREA NITROGEN 10 MG/DL (9-23); CALCIUM LEVEL 8.4 MG/DL (8.3-10.6); CARBON DIOXIDE LEVEL 34 MMOL/L (20-31); CHLORIDE LEVEL 84 MMOL/L (98-107); CREATININE FOR GFR 0.97 MG/DL (0.70-1.30); GLOMERULAR FILTRATION RATE > 60.0 (>42); GLUCOSE, FASTING 113 MG/DL (74-106); POTASSIUM SERUM 2.7 MMOL/L (3.5-5.1); SODIUM LEVEL 124 MMOL/L (136-145)
[2024-03-13 12:07] VITALS: BP 120/85; TEMP 97.2; O2SAT 97
[2024-03-13 16:04] VITALS: BP 125/67; TEMP 97.5; O2SAT 97
[2024-03-13] MEDS: POTASSIUM CHLORIDE 10MEQ SR TABLET PO SCH (16:53)
[2024-03-13 17:08] LABS: BLOOD UREA NITROGEN 9 MG/DL (9-23); CALCIUM LEVEL 8.8 MG/DL (8.3-10.6); CARBON DIOXIDE LEVEL 32 MMOL/L (20-31); CHLORIDE LEVEL 86 MMOL/L (98-107); CREATININE FOR GFR 0.99 MG/DL (0.70-1.30); GLOMERULAR FILTRATION RATE > 60.0 (>42); GLUCOSE, FASTING 117 MG/DL (74-106); POTASSIUM SERUM 2.7 MMOL/L (3.5-5.1); SODIUM LEVEL 125 MMOL/L (136-145)
[2024-03-13 19:28] VITALS: BP 152/76; TEMP 97.9; O2SAT 96
[2024-03-13] MEDS ORDERED: POTASSIUM CHLORIDE 10MEQ SR TABLET PO SCH (21:00)
[2024-03-13 22:37] LABS: BLOOD UREA NITROGEN 11 MG/DL (9-23); CALCIUM LEVEL 8.4 MG/DL (8.3-10.6); CARBON DIOXIDE LEVEL 32 MMOL/L (20-31); CHLORIDE LEVEL 85 MMOL/L (98-107); CREATININE FOR GFR 0.99 MG/DL (0.70-1.30); GLOMERULAR FILTRATION RATE > 60.0 (>42); GLUCOSE, FASTING 101 MG/DL (74-106); POTASSIUM SERUM 2.8 MMOL/L (3.5-5.1); SODIUM LEVEL 125 MMOL/L (136-145)
[2024-03-13 23:18] VITALS: BP 122/84; TEMP 97.4; O2SAT 94
[2024-03-14] MEDS: KCL 10MEQ/100ML SWI (KRUN) 10 MEQ in IV 1 EA IV SCH (03:25)
[2024-03-14 03:29] VITALS: BP 143/84; TEMP 97.5; O2SAT 95
[2024-03-14 05:18] LABS: BASO % 0.4 % (0.0-1.0); EOS # 0.3 10^3/uL (0.0-0.5); HEMATOCRIT 36.9 % (42.0-52.0); HEMOGLOBIN 13.4 g/dl (13.5-17.5); LYMPH # 1.5 10^3/uL (1.5-5.0); LYMPH % 18.8 % (24.0-44.0); MEAN CORPUSCULAR HEMOGLOBIN 29.5 pg (27.0-33.0); MEAN CORPUSCULAR HGB CONC 36.3 g/dl (32.0-36.5); MEAN CORPUSCULAR VOLUME 81.3 fl (80.0-96.0); MONO # 1.1 10^3/uL (0.0-0.8); MONO % 14.1 % (2.0-8.0); NEUTROPHILS # 4.9 10^3/uL (1.5-8.5); NEUTROPHILS % 62.3 % (36.0-66.0); PLATELET COUNT, AUTOMATED 257 10^3/uL (150-450); RED BLOOD COUNT 4.54 10^6/uL (4.30-6.10); WHITE BLOOD COUNT 7.8 10^3/uL (4.0-10.0)
[2024-03-14 05:47] LABS: BLOOD UREA NITROGEN 10 MG/DL (9-23); CALCIUM LEVEL 8.9 MG/DL (8.3-10.6); CARBON DIOXIDE LEVEL 30 MMOL/L (20-31); CHLORIDE LEVEL 85 MMOL/L (98-107); CREATININE FOR GFR 0.97 MG/DL (0.70-1.30); GLOMERULAR FILTRATION RATE > 60.0 (>42); GLUCOSE, FASTING 118 MG/DL (74-106); POTASSIUM SERUM 3.1 MMOL/L (3.5-5.1); SODIUM LEVEL 123 MMOL/L (136-145)
[2024-03-14 07:06] VITALS: BP 124/75; TEMP 97.6; O2SAT 93
[2024-03-14] MEDS: SODIUM CHLORIDE 1 GM TAB PO SCH (10:16)
[2024-03-14 12:08] VITALS: BP 133/91; TEMP 98; O2SAT 92
[2024-03-14 15:56] VITALS: BP 121/81; TEMP 97.6; O2SAT 92
[2024-03-14 17:25] LABS: BLOOD UREA NITROGEN 10 MG/DL (9-23); CALCIUM LEVEL 8.5 MG/DL (8.3-10.6); CARBON DIOXIDE LEVEL 31 MMOL/L (20-31); CHLORIDE LEVEL 90 MMOL/L (98-107); CREATININE FOR GFR 0.93 MG/DL (0.70-1.30); GLOMERULAR FILTRATION RATE > 60.0 (>42); GLUCOSE, FASTING 107 MG/DL (74-106); POTASSIUM SERUM 3.3 MMOL/L (3.5-5.1); SODIUM LEVEL 126 MMOL/L (136-145)
[2024-03-14 18:51] VITALS: BP 119/71; TEMP 98.4; O2SAT 94
[2024-03-14 23:46] VITALS: BP 131/84; TEMP 98.7; O2SAT 93
[2024-03-15 00:40] LABS: BLOOD UREA NITROGEN 10 MG/DL (9-23); CALCIUM LEVEL 8.6 MG/DL (8.3-10.6); CARBON DIOXIDE LEVEL 29 MMOL/L (20-31); CHLORIDE LEVEL 93 MMOL/L (98-107); CREATININE FOR GFR 0.98 MG/DL (0.70-1.30); GLOMERULAR FILTRATION RATE > 60.0 (>42); GLUCOSE, FASTING 102 MG/DL (74-106); POTASSIUM SERUM 4.2 MMOL/L (3.5-5.1); SODIUM LEVEL 127 MMOL/L (136-145)
[2024-03-15 04:00] VITALS: BP 135/88; TEMP 97.4; O2SAT 94
[2024-03-15 05:54] LABS: BASO % 0.4 % (0.0-1.0); EOS # 0.3 10^3/uL (0.0-0.5); EOS % 2.8 % (0.0-3.0); HEMATOCRIT 38.3 % (42.0-52.0); HEMOGLOBIN 13.4 g/dl (13.5-17.5); LYMPH # 1.6 10^3/uL (1.5-5.0); LYMPH % 18.2 % (24.0-44.0); MEAN CORPUSCULAR HEMOGLOBIN 29.2 pg (27.0-33.0); MEAN CORPUSCULAR VOLUME 83.4 fl (80.0-96.0); MONO # 1.2 10^3/uL (0.0-0.8); MONO % 13.1 % (2.0-8.0); NEUTROPHILS # 5.8 10^3/uL (1.5-8.5); NEUTROPHILS % 65.1 % (36.0-66.0); PLATELET COUNT, AUTOMATED 266 10^3/uL (150-450); RED BLOOD COUNT 4.59 10^6/uL (4.30-6.10)
[2024-03-15 06:15] LABS: BLOOD UREA NITROGEN 11 MG/DL (9-23); CALCIUM LEVEL 8.8 MG/DL (8.3-10.6); CARBON DIOXIDE LEVEL 26 MMOL/L (20-31); CHLORIDE LEVEL 95 MMOL/L (98-107); CREATININE FOR GFR 0.95 MG/DL (0.70-1.30); GLOMERULAR FILTRATION RATE > 60.0 (>42); GLUCOSE, FASTING 98 MG/DL (74-106); MAGNESIUM LEVEL 1.4 MG/DL (1.8-2.4); POTASSIUM SERUM 4.2 MMOL/L (3.5-5.1); SODIUM LEVEL 128 MMOL/L (136-145)
[2024-03-15 08:08] VITALS: BP 139/72; TEMP 97.3; O2SAT 95
[2024-03-15] MEDS: FOLIC ACID 1MG TAB PO SCH (09:00)
[2024-03-15] MEDS: MAGNESIUM OXIDE 400MG TAB (MAG-OX) PO SCH (10:01)
[2024-03-15 12:36] VITALS: BP 120/84; TEMP 97.3; O2SAT 94
[2024-03-15] MEDS ORDERED: QUEtiapine FUMARATE 50MG TAB PO SCH (16:00)
[2024-03-15 16:10] VITALS: BP 147/88; TEMP 97.3; O2SAT 93
[2024-03-15 16:59] LABS: BLOOD UREA NITROGEN 13 MG/DL (9-23); CARBON DIOXIDE LEVEL 27 MMOL/L (20-31); CHLORIDE LEVEL 97 MMOL/L (98-107); GLOMERULAR FILTRATION RATE > 60.0 (>42); GLUCOSE, FASTING 104 MG/DL (74-106); POTASSIUM SERUM 4.4 MMOL/L (3.5-5.1); SODIUM LEVEL 131 MMOL/L (136-145)
[2024-03-15 17:00] LABS: VITAMIN B12 LEVEL 532 PG/ML (211-911)
[2024-03-15] MEDS: QUEtiapine FUMARATE 50MG TAB PO SCH (17:48)
[2024-03-15] MEDS ORDERED: LORazepam 2 MG TAB PO PRN (18:40)
[2024-03-15] MEDS: LORazepam 2 MG/ML 1ML VIAL IV ONE (19:13)
[2024-03-15 20:13] VITALS: BP 134/96; TEMP 97.8; O2SAT 96
[2024-03-15] MEDS: MULTIVITAMINS/MINERALS THERAP 1 TAB PO SCH (20:26)
[2024-03-15] MEDS: THIAMINE 100 MG TAB PO SCH (20:26)
[2024-03-15 23:45] VITALS: BP 140/91; TEMP 97.3; O2SAT 93
[2024-03-16 04:56] VITALS: BP 126/65; TEMP 97.6; O2SAT 91
[2024-03-16 06:47] LABS: BASO # 0.1 10^3/uL (0.0-0.2); BASO % 0.9 % (0.0-1.0); EOS # 0.4 10^3/uL (0.0-0.5); EOS % 4.8 % (0.0-3.0); HEMOGLOBIN 12.7 g/dl (13.5-17.5); LYMPH # 1.7 10^3/uL (1.5-5.0); LYMPH % 22.2 % (24.0-44.0); MEAN CORPUSCULAR HGB CONC 34.3 g/dl (32.0-36.5); MEAN CORPUSCULAR VOLUME 84.5 fl (80.0-96.0); MONO # 1.1 10^3/uL (0.0-0.8); MONO % 13.7 % (2.0-8.0); NEUTROPHILS # 4.5 10^3/uL (1.5-8.5); NEUTROPHILS % 57.9 % (36.0-66.0); PLATELET COUNT, AUTOMATED 243 10^3/uL (150-450); RED BLOOD COUNT 4.38 10^6/uL (4.30-6.10); WHITE BLOOD COUNT 7.7 10^3/uL (4.0-10.0)
[2024-03-16 07:29] VITALS: BP 133/78; TEMP 97.2; O2SAT 4; O2SAT 94
[2024-03-16 07:36] LABS: BLOOD UREA NITROGEN 14 MG/DL (9-23); CALCIUM LEVEL 8.8 MG/DL (8.3-10.6); CARBON DIOXIDE LEVEL 26 MMOL/L (20-31); CHLORIDE LEVEL 102 MMOL/L (98-107); CREATININE FOR GFR 1.04 MG/DL (0.70-1.30); GLOMERULAR FILTRATION RATE > 60.0 (>42); GLUCOSE, FASTING 72 MG/DL (74-106); POTASSIUM SERUM 4.5 MMOL/L (3.5-5.1); SODIUM LEVEL 134 MMOL/L (136-145)
[2024-03-16 11:43] VITALS: BP 137/85; TEMP 96.9; O2SAT 96
[2024-03-16 13:12] LABS: ALBUMIN 2.2 G/DL (3.2-5.2); ALKALINE PHOSPHATASE 46 U/L (46-116); ALT/SGPT 34 U/L (7.0-40); AST/SGOT 60 U/L (<34); BILIRUBIN,DIRECT 1.4 MG/DL (<0.4); TOTAL PROTEIN 5.5 G/DL (5.7-8.2)
[2024-03-16 15:57] VITALS: BP 137/87; TEMP 97; O2SAT 94
[2024-03-16] MEDS: PINK BISMUTH SUSP 524MG/30ML ORAL SYRINGE PO PRN (17:04)
[2024-03-16 20:04] VITALS: BP 150/79; TEMP 97.2; O2SAT 95
[2024-03-16] MEDS: SODIUM CHLORIDE 1 GM TAB PO SCH (21:16)
[2024-03-16 23:48] VITALS: BP 108/83; TEMP 97.3; O2SAT 94
[2024-03-17 04:25] VITALS: BP 126/86; TEMP 97.1; O2SAT 93
[2024-03-17 05:34] LABS: BASO # 0.1 10^3/uL (0.0-0.2); BASO % 0.6 % (0.0-1.0); EOS # 0.5 10^3/uL (0.0-0.5); EOS % 5.8 % (0.0-3.0); HEMATOCRIT 38.3 % (42.0-52.0); HEMOGLOBIN 13.2 g/dl (13.5-17.5); LYMPH # 1.9 10^3/uL (1.5-5.0); LYMPH % 22.7 % (24.0-44.0); MEAN CORPUSCULAR HEMOGLOBIN 29.5 pg (27.0-33.0); MEAN CORPUSCULAR HGB CONC 34.5 g/dl (32.0-36.5); MEAN CORPUSCULAR VOLUME 85.7 fl (80.0-96.0); MONO % 12.1 % (2.0-8.0); NEUTROPHILS # 4.9 10^3/uL (1.5-8.5); NEUTROPHILS % 58.2 % (36.0-66.0); PLATELET COUNT, AUTOMATED 248 10^3/uL (150-450); RED BLOOD COUNT 4.47 10^6/uL (4.30-6.10); WHITE BLOOD COUNT 8.3 10^3/uL (4.0-10.0)
[2024-03-17 06:10] LABS: BLOOD UREA NITROGEN 18 MG/DL (9-23); CALCIUM LEVEL 8.9 MG/DL (8.3-10.6); CARBON DIOXIDE LEVEL 25 MMOL/L (20-31); CHLORIDE LEVEL 103 MMOL/L (98-107); CREATININE FOR GFR 1.08 MG/DL (0.70-1.30); GLOMERULAR FILTRATION RATE > 60.0 (>42); GLUCOSE, FASTING 86 MG/DL (74-106); POTASSIUM SERUM 4.8 MMOL/L (3.5-5.1); SODIUM LEVEL 135 MMOL/L (136-145)
[2024-03-17 07:01] VITALS: BP 132/89; TEMP 97.2; O2SAT 95
[2024-03-17] MEDS ORDERED: SODI1TAB6 PO (11:26)
[2024-03-21 10:07] LABS: VITAMIN B1 LEVEL WHOLE BLOOD 142.2 nmol/L (66.5-200.0); VITAMIN E(GAMMA TOCOPHEROL) 0.5 mg/L (0.5-4.9)
== END 2024-03-17 14:05 | disposition home or self-care (01) | DRG 640 ==
LOC: M ED 21:32 → M ED INP 03-13 02:35 → M PCU 03-13 04:15
PROVIDERS: ADMIT Preventive Medicine Undersea and Hyperbaric Medicine; ATTEND Internal Medicine Nephrology
PROC: B246ZZZ Ultrasonography of Right and Left Heart (ICD-10-PCS; principal; 2024-03-14)
DX: E87.1 Hypo-osmolality and hyponatremia (principal); G93.41 Metabolic encephalopathy; I50.22 Chronic systolic (congestive) heart failure; F10.139 Alcohol abuse with withdrawal, unspecified; I25.10 Atherosclerotic heart disease of native coronary artery without angina pectoris; I48.91 Unspecified atrial fibrillation; E11.9 Type 2 diabetes mellitus without complications; E78.5 Hyperlipidemia, unspecified; R53.1 Weakness; E87.6 Hypokalemia; F10.129 Alcohol abuse with intoxication, unspecified; E83.42 Hypomagnesemia; L40.9 Psoriasis, unspecified; L57.0 Actinic keratosis; L82.1 Other seborrheic keratosis; R41.0 Disorientation, unspecified; E87.70 Fluid overload, unspecified; R60.0 Localized edema; G31.84 Mild cognitive impairment of uncertain or unknown etiology; I11.0 Hypertensive heart disease with heart failure; I27.20 Pulmonary hypertension, unspecified; K76.1 Chronic passive congestion of liver; R63.4 Abnormal weight loss; M10.9 Gout, unspecified; K21.9 Gastro-esophageal reflux disease without esophagitis; Z79.82 Long term (current) use of aspirin; Z87.891 Personal history of nicotine dependence; Z79.899 Other long term (current) drug therapy; Z95.5 Presence of coronary angioplasty implant and graft; Z88.8 Allergy status to other drugs, medicaments and biological substances; Z91.040 Latex allergy status

== ENCOUNTER 2024-04-03 23:43 | Emergency (ER) | payer MEDICARE, OTHER, BC ==
[~2024-04-03] VITALS: Ht 175.3 cm; Wt 80.9 kg
[~2024-04-03 23:43] MED LIST changes: +ALLO300T2 PO; +AUGM0.0534 TOP; +CLOB0.0548 TOP; +FURO40TA2 PO; +KETO2SHA8 TOP; +MAGN400T2 PO; +ONDA4TAB6 PO; +SODI1TAB6 PO; +VITA500045 PO
[2024-04-04 00:43] LABS: BASO % 0.4 % (0.0-1.0); EOS # 0.3 10^3/uL (0.0-0.5); HEMATOCRIT 37.6 % (42.0-52.0); HEMOGLOBIN 12.9 g/dl (13.5-17.5); LYMPH # 2.4 10^3/uL (1.5-5.0); LYMPH % 29.4 % (24.0-44.0); MEAN CORPUSCULAR HEMOGLOBIN 29.5 pg (27.0-33.0); MEAN CORPUSCULAR HGB CONC 34.3 g/dl (32.0-36.5); MEAN CORPUSCULAR VOLUME 85.8 fl (80.0-96.0); MONO # 0.9 10^3/uL (0.0-0.8); MONO % 11.1 % (2.0-8.0); NEUTROPHILS # 4.6 10^3/uL (1.5-8.5); NEUTROPHILS % 55.9 % (36.0-66.0); PLATELET COUNT, AUTOMATED 293 10^3/uL (150-450); RED BLOOD COUNT 4.38 10^6/uL (4.30-6.10); WHITE BLOOD COUNT 8.2 10^3/uL (4.0-10.0)
[2024-04-04 01:15] LABS: BILIRUBIN,DIRECT 0.8 MG/DL (<0.4); BILIRUBIN,TOTAL 1.4 MG/DL (0.3-1.2); CALCIUM LEVEL 9.1 MG/DL (8.3-10.6); CREATININE FOR GFR 1.36 MG/DL (0.70-1.30); GLOMERULAR FILTRATION RATE 54.7 (>42); POTASSIUM SERUM 3.7 MMOL/L (3.5-5.1); TOTAL PROTEIN 6.7 G/DL (5.7-8.2)
[2024-04-04] MEDS ORDERED: FERR325T3 PO (01:28)
[2024-04-04] MEDS ORDERED: REGL10TA6 PO (03:59)
[2024-04-04 04:30] VITALS: BP 125/87; TEMP 97.8; O2SAT 98
== END 2024-04-04 04:31 | disposition home or self-care (01) ==
LOC: M ED 23:43
DX: K31.84 Gastroparesis (principal); N17.8 Other acute kidney failure; E11.9 Type 2 diabetes mellitus without complications; K21.9 Gastro-esophageal reflux disease without esophagitis; E78.5 Hyperlipidemia, unspecified; Z88.8 Allergy status to other drugs, medicaments and biological substances; Z91.040 Latex allergy status; Z79.1 Long term (current) use of non-steroidal anti-inflammatories (NSAID); Z79.84 Long term (current) use of oral hypoglycemic drugs; Z79.899 Other long term (current) drug therapy; Z79.810 Long term (current) use of selective estrogen receptor modulators (SERMs)